=== PATIENT | female | born 1985 | race Caucasian/White ===

== ENCOUNTER 2016-12-20 20:24 | Inpatient (IN) | payer BC, OTHER ==
[~2016-12-20] VITALS: Ht 157.5 cm; Wt 99.8 kg
[2016-12-20] MEDS ORDERED: DULO60CA45 PO (20:51)
[2016-12-20] MEDS ORDERED: OMEP40CA37 PO (20:51)
[2016-12-20] MEDS ORDERED: VISTARIL (20:51)
[2016-12-20] MEDS ORDERED: LAMO100T2 PO (20:51)
[2016-12-20] MEDS ORDERED: METF500T4 PO (20:51)
[2016-12-20] MEDS ORDERED: PROP60CA2 PO (20:51)
[2016-12-20] MEDS ORDERED: PRAV40TA3 PO (20:51)
[2016-12-20] MEDS ORDERED: BUPR150T5 PO (20:51)
[2016-12-20] MEDS ORDERED: GABA-534 PO (20:51)
[2016-12-20] MEDS ORDERED: GABA600T2 PO (20:51)
[2016-12-20] MEDS ORDERED: TRAZ-144 PO (20:51)
[2016-12-20 21:02] LABS: *URINE HCG, QUAL NEGATIVE (NEGATIVE)
[2016-12-20 21:10] LABS: *AMPHETAMINE, URINE NEGATIVE (NEGATIVE); *BARBITURATE, URINE NEGATIVE (NEGATIVE); *CANNABINOID, URINE NEGATIVE (NEGATIVE); *COCCAINE, URINE NEGATIVE (NEGATIVE); *OPIATE, URINE NEGATIVE (NEGATIVE); *PHENCYCLIDINE SCREEN,URINE NEGATIVE (NEGATIVE)
[2016-12-20 21:22] LABS: BASOPHILS # (AUTO) 0.1 K/uL (0.0-8.0); BASOPHILS % (AUTO) 0.6 % (0.0-2.0); EOSINOPHILS # (AUTO) 0.2 K/uL (0.0-0.7); EOSINOPHILS % (AUTO) 2.4 % (0.0-7.0); HEMATOCRIT 41.3 % (37-47); HEMOGLOBIN 13.6 G/DL (12.0-16.0); LYMPHOCYTES # (AUTO) 3.4 K/UL (0.8-4.8); LYMPHOCYTES % (AUTO) 37.1 % (20.5-51.5); MEAN CORPUSCULAR HEMOGLOBIN 27.4 UUG (27.0-31.0); MEAN CORPUSCULAR HGB CONC 33 g/dL (32.0-37.0); MEAN CORPUSCULAR VOLUME 83.4 FL (81.0-99.0); MONOCYTES # (AUTO) 0.5 K/UL (0.1-1.30); MONOCYTES % (AUTO) 5.8 % (0.0-11.0); NEUTROPHILS # (AUTO) 5.1 K/UL (1.8-8.9); NEUTROPHILS % (AUTO) 54.1 % (38.5-71.5); PLATELET COUNT (AUTO) 510 K/UL (150-450); RED BLOOD CELL COUNT(AUTO) 4.95 MIL/UL (4.2-5.4); WHITE BLOOD COUNT (AUTO) 9.3 K/UL (4.0-11.2)
[2016-12-20 21:30] LABS: CARBON DIOXIDE 27 mmol/L (21-32); CHLORIDE 103 mmol/L (98-107); CREATININE 0.8 mg/dL (0.6-1.3); GLUCOSE 130 mg/dL (74-106); POTASSIUM 4.4 mmol/L (3.5-5.1); UREA NITROGEN, BLOOD 9 mg/dL (7-18)
--- NOTE | 2016-12-20 21:30 | NUR ---
Art is for psych eval.
[2016-12-20 21:35] LABS: ALANINE AMINOTRANSFERASE 38 U/L (14-59); ALKALINE PHOSPHATASE 44 U/L (50-136); ASPARTATE AMINOTRANSFERASE 28 U/L (15-37); BILIRUBIN,DIRECT < 0.1 mg/dL (0.0-0.2); BILIRUBIN,TOTAL 0.2 mg/dL (0.2-1.0); TOTAL PROTEIN, SERUM 7.9 g/dL (6.4-8.2)
[2016-12-20 21:37] LABS: ACETAMINOPHEN < 2.0 ug/mL (10-30)
[2016-12-20 21:43] LABS: THYROID STIMULATING HORMONE 4.507 mIU/mL (0.358-3.740)
[2016-12-20 21:56] LABS: ETHANOL < 3 MG/DL (0-0)
--- NOTE | 2016-12-20 22:25 | NUR ---
Per Dr. Arellano pt may be d/c to [facility], intake called.
--- NOTE | 2016-12-20 22:32 | NUR ---
SBAR report given to Brown on [facility] floor, pt d/c to [facility] intake. NAD noted.
[2016-12-20 23:25] VITALS: BP 143/90
--- NOTE | 2016-12-20 23:25 | NUR ---
INTAKE ASSESSMENT VS BP- 143/90 T- 97.8 P-109 R- 18 PA- SpO2 AT RA -98% IN RA. DENIES ANY PAIN AT THIS TIME. PATIENT AMBULATORY. PATIENT ANSWERS QUESTIONS APPROPRIATELY. PATIENT APPEARS TO BE NOT INTOXICATED. PATIENT DOES NOT HAVE ANY ALLERGIES. NO SEIZURE HISTORY. PATIENT WAS IN ER FOR PSYCHIATRIC CLEARANCE FOR ADMISSION TO THE UNIT. PATIENT STATES SHE WAS DEPRESSED AND HAD SUICIDE IDEATION. PSYCH EVALUATION DONE AND PATIENT WAS CLEARED AND DR. RAMIREZ NOTIFIED AND AWARE. WILL CONTINUE ADMISSION ON 3RD FLOOR.
--- NOTE | 2016-12-20 23:54 | NUR ---
ADMISSION NOTE PATIENT IS A 31 YEAR OLD FEMALE WHO PRESENTS TO [facility] FOR OPIATE/BENZO DEPENDENCE. HEIGHT IS 5'2 AND WEIGHT IS 220 LBS. LUNGS CLEAR . ABDOMEN SOFT AND NON-DISTENDED. BOWEL SOUNDS ACTIVE ON ALL QUADRANT. LAST BOWEL MOVEMENT TODAY AT 4 PM AND NO DIFFICULTY WHEN URINATING. BODY CHECK DONE. SKIN CLEAR AND INTACT. PATIENT REPORTS PM OF ANXIETY, DEPRESSION, BIPOLAR (2013), TONSILLECTOMY (SEP 2008), CHOLECYSTECTOMY (MAY 2008) AND POLYCYSTIC OVARY SYNDROME. PATIENT'S PCP IS DR. PARKER RAMIREZ. 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 PATIENT'S SUBSTANCE HISTORY ARE : 1.XANAX (PO)- STARTED 18 YEARS OLD. TAKES 3-4 MG DAILY FOR 10 DAYS . LAST USE WAS 2 MG ON 12/20/16 2.VALIUM (PO)-STARTED 30 YEARS OLD. TAKES 30 MG DAILY FOR 4 DAYS . LAST USE WAS 30 MG ON 12/19/16 3.NORCO (PO)-STARTED 20 YEARS OLD. 20 MG DAILY FOR 3 DAYS . LAST USE WAS 20 MG ON 12/09/16 4.BUPRENORPHINE (RECTALLY) -STARTED 24 YEARS OLD. 4 MG DAILY FOR 4 DAYS. LAST USE WAS 4 MG ON 12/12/16 5.BUTORPHANOL (RECTALLY )- STARTED A YEAR AGO. 3 MG DAILY FOR 4 DAYS. LAST USE WAS 5 MG ON 12/19/16 6.AMBIEN (PO)-STARTED A YEAR AGO. 20 MG DAILY FOR 10 DAYS. LAST USE WAS 12/20/16 7.KETAMINE (RECTALLY)-STARTED USING 5 DAYS AGO.USED 10 ML IN 3 DAYS . LAST USE WAS 12/17/16 TREATMENT HISTORY 1.[facility]- Nov- 6 DAYS 2.[facility]-NOV 2015 PATIENT STATES SHE'S FEELING ANXIOUS AT THIS TIME. SWEATING, TREMULOUS , NAUSEATED AND BACK PAIN /. COWS 12 AND CIWA 8. DENIES S/I AND H/I. PATIENT SMOKED OCCASIONALLY. PATIENT WAS PLACED ON FALL PRECAUTION. PATIENT ORIENTED TO SURROUNDINGS AND HOW TO USE CALL LIGHT. SAFETY MEASURES IN PLACE. CALL LIGHT IN REACH. WILL CONTINUE TO MONITOR. Addendum: 12/21/16 at 0708 by PAT BACON LVN PATIENT BROUGHT HOME MEDS - RECONCILED
[2016-12-21] MEDS ORDERED: DICYCLOMINE HCL 20 MG TABLET PO PRN (00:45)
[2016-12-21] MEDS ORDERED: diphenhydrAMINE 50 MG CAPSULE PO PRN (00:45)
[2016-12-21] MEDS ORDERED: LOPERAMIDE HCL 2 MG CAPSULE PO PRN ×2 (00:45)
[2016-12-21] MEDS ORDERED: MAGNESIUM HYDROXIDE 30 ML LIQUID UDC PO PRN (00:45)
[2016-12-21] MEDS ORDERED: LORAZEPAM 2 MG/1 ML VIAL IM PRN (00:45)
[2016-12-21] MEDS ORDERED: ONDANSETRON HCL 4 MG TABLET PO PRN (00:45)
[2016-12-21] MEDS ORDERED: LORAZEPAM 1 MG TABLET PO PRN ×2 (00:45)
[2016-12-21] MEDS ORDERED: BUPRENORPHINE HCL 2 MG TAB.SUBL SL PRN (00:45)
[2016-12-21] MEDS ORDERED: MIRALAX 17 GM POWD.PACK PO PRN (00:45)
[2016-12-21] MEDS: ONDANSETRON ODT 4 MG TAB.RAPDIS SL PRN ×3 (00:56→21:16)
[2016-12-21] MEDS: METHOCARBAMOL 750 MG TABLET PO PRN (00:56)
--- NOTE | 2016-12-21 00:56 | NUR ---
PRN ATIVAN, SUBUTEX, ZOFRAN AND ROBAXIN ADMINISTRATION PATIENT REPORTS ANXIETY, NOTED RESTLESS, SWEATING, TREMULOUS, NAUSEATED BUT NO EMESIS AND BACK PAIN 08/02. COWS 12 AND CIWA 8. WILL MONITOR FOR EFFECTIVENESS
[2016-12-21] MEDS ORDERED: BUPRENORPHINE HCL 2 MG TAB.SUBL SL ONE (01:03)
[2016-12-21] MEDS ORDERED: ONDANSETRON ODT 4 MG TAB.RAPDIS ONE (01:04)
[2016-12-21] MEDS ORDERED: LORAZEPAM 1 MG TABLET ONE (01:04)
[2016-12-21] MEDS ORDERED: METHOCARBAMOL 750 MG TABLET ONE (01:10)
--- NOTE | 2016-12-21 01:26 | NUR ---
PRN SUBUTEX RE-ASSESSMENT PATIENT ASLEEP AT THIS TIME. COWS DEFERRED. RESPIRATION EVEN AND UNLABORED. SAFETY MEASURES IN PLACE. CALL LIGHT IN REACH. WILL CONTINUE TO MONITOR.
--- NOTE | 2016-12-21 01:56 | NUR ---
RAUL SUBUTEX, ATIVAN, MOTRIN AND ROBAXIN RE-ASSESSMENT PATIENT ASLEEP AT THIS TIME. NO FACIAL GRIMACING, SLEEPING COMFORTABLY. RESPIRATION EVEN AND UNLABORED CIWA AND COWS UNABLE TO ASSESS . COWS/CIWA DEFERRED. Addendum: 12/21/16 at 0726 by PAT BACON LVN ERROR: SUBUTEX RE-ASSESSED IN 30 MINUTES
[2016-12-21] MEDS ORDERED: TETR-62 OP (03:43)
[2016-12-21] MEDS ORDERED: CYCL5TAB PO (03:43)
[2016-12-21] MEDS ORDERED: TRET20CR34 TP (03:43)
[2016-12-21] MEDS ORDERED: CLIN60LO2 TP (03:43)
[2016-12-21 04:00] VITALS: BP 114/64
[2016-12-21] MEDS: HYDROXYZINE PAMOATE 25 MG CAPSULE PO PRN ×2 (04:05→07:48)
--- NOTE | 2016-12-21 04:05 | NUR ---
PRN BENADRYL AND VISTARIL ADMINISTRATION PATIENT C/O ANXIETY AND UNABLE TO GO BACK TO SLEEP. PRN BENADRYL AND VISTARIL GIVEN. WILL MONITOR FOR EFFECTIVENESS
[2016-12-21] MEDS ORDERED: diphenhydrAMINE 50 MG CAPSULE ONE (04:10)
[2016-12-21] MEDS ORDERED: HYDROXYZINE PAMOATE 25 MG CAPSULE ONE (04:10)
--- NOTE | 2016-12-21 05:05 | NUR ---
PRN SARAVANANADRYL AND VISTARIL RE-ASSESSMENT PATIENT ASLEEP AT THIS TIME. RESPIRATION EVEN AND UNLABORED. SAFETY MEASURES IN PLACE. CALL LIGHT IN REACH. WILL CONTINUE TO MONITOR.
--- NOTE | 2016-12-21 07:12 | NUR ---
END OF SHIFT NOTE PATIENT IS 31 YEAR OLD FEMALE ADMITTED ON 2323 ON 12/20/16FOR BENZO/OPIATE DEPENDENCE. PATIENT WAS GIVEN PRN ATIVAN, SUBUTEX, ROBAXIN AND ZOFRAN. AT 0405, PATIENT WAS GIVEN PRN BENADRYL AND VISTARIL WAS GIVEN. PATIENT SLEPT 4 HOURS. FLUID INTAKE OF 960 ML. VOIDED X 2. NO BM. ON FALL PRECAUTION. SAFETY MEASURES IN PLACE. CALL LIGHT IN REACH. WILL CONTINUE TO MONITOR. LAST COWS 5 AND CIWA 2. DENIES SI/HI DURING SHIFT. PATIENT COMPLIANT WITH MEDICATION AND TREATMENT PLAN.
--- NOTE | 2016-12-21 07:45 | NUR ---
START OF SHIFT Rcvd endorsement from ongoing nurse, client is in room, she is a/o x 4, she presents with depressed mood, flat affect. She reports restless legs, body aches, abdominal cramps, nausea, and chills. Encouraged client to attend group therapy for skills to maintain sober. Encouraged client to increase PO fluid as tolerated to facilitate detox. Client is a 31 y/o female, admitted to [facility] for withdrawal from alprazolam, diazepam, and heroin. Lorazepam 1 mg PO q2h PRN CIWA 5-15, Lorazepam 2 mg PO q2h PRN CIWA 16+ and notify MD, Subutex 4mgSL Q4H PRN for COWS =>12. Last CIWA 2/COWS 4 @ 0400. PRN Ativan 1mg PO for CIWA 8, Subutex 4mg SL for COWS 12, Vistaril 25mg PO for anxiety, Benadryl 50mg PO for inability to sleep, she slept 4 hrs. She denies any of withdrawal-induced seizures, Client reports of NKA, he is full code, Regular diet. Side rails x 2 up/padded for seizure precautions. Call light within reach.
--- NOTE | 2016-12-21 07:48 | NUR ---
PRN Zofran 4mg SL, Bentyl 20mg PO, Vistaril 25mg PO administered for mild nausea w/no vomiting, abdominal spasms, and anxiety.
[2016-12-21 08:30] VITALS: BP 134/76
--- NOTE | 2016-12-21 08:48 | NUR ---
Reassessment PRN Zofran 4mg SL, Bentyl 20mg PO, Vistaril 25mg PO client verbalized relief from nausea, and abdominal spasms, she appears less anxious, she is eating breakfast and watching TV. Call light with reach.
[2016-12-21 09:01] LABS: BASOPHILS # (AUTO) 0.1 K/uL (0.0-8.0); BASOPHILS % (AUTO) 0.8 % (0.0-2.0); EOSINOPHILS # (AUTO) 0.2 K/uL (0.0-0.7); EOSINOPHILS % (AUTO) 2.5 % (0.0-7.0); HEMATOCRIT 39.2 % (37-47); HEMOGLOBIN 12.7 G/DL (12.0-16.0); LYMPHOCYTES # (AUTO) 2.6 K/UL (0.8-4.8); LYMPHOCYTES % (AUTO) 39.4 % (20.5-51.5); MEAN CORPUSCULAR HEMOGLOBIN 27.1 UUG (27.0-31.0); MEAN CORPUSCULAR HGB CONC 32 g/dL (32.0-37.0); MEAN CORPUSCULAR VOLUME 83.4 FL (81.0-99.0); MONOCYTES # (AUTO) 0.4 K/UL (0.1-1.30); MONOCYTES % (AUTO) 6.7 % (0.0-11.0); NEUTROPHILS # (AUTO) 3.3 K/UL (1.8-8.9); NEUTROPHILS % (AUTO) 50.6 % (38.5-71.5); PLATELET COUNT (AUTO) 458 K/UL (150-450); RED BLOOD CELL COUNT(AUTO) 4.69 MIL/UL (4.2-5.4); WHITE BLOOD COUNT (AUTO) 6.6 K/UL (4.0-11.2)
[2016-12-21 09:14] LABS: ALANINE AMINOTRANSFERASE 157 U/L (14-59); ALKALINE PHOSPHATASE 49 U/L (50-136); AMYLASE 39 U/L (25-115); ASPARTATE AMINOTRANSFERASE 402 U/L (15-37); BILIRUBIN,TOTAL 0.3 mg/dL (0.2-1.0); CARBON DIOXIDE 27 mmol/L (21-32); CHLORIDE 101 mmol/L (98-107); CREATININE 0.8 mg/dL (0.6-1.3); GLUCOSE 120 mg/dL (74-106); LIPASE 235 U/L (73-393); MAGNESIUM 1.5 mg/dL (1.8-2.4); POTASSIUM 3.8 mmol/L (3.5-5.1); TOTAL PROTEIN, SERUM 7.5 g/dL (6.4-8.2); UREA NITROGEN, BLOOD 9 mg/dL (7-18)
[2016-12-21 09:15] LABS: ETHANOL < 3 MG/DL (0-0)
[2016-12-21 09:21] LABS: THYROID STIMULATING HORMONE 4.071 mIU/mL (0.358-3.740)
[2016-12-21] MEDS: FOLIC ACID 1 MG TABLET PO SCH (09:32)
[2016-12-21] MEDS: MULTIVITAMINS,THERAPEUTIC TABLET PO SCH (09:32)
--- NOTE | 2016-12-21 11:00 | NUR ---
MD Notification Dr. Win made aware of abnormal lab values, NNO at this time. Client is asymptomatic, will continue to monitor.
[2016-12-21] MEDS: LORAZEPAM 1 MG TABLET PO SCH ×4 (11:43→21:09)
[2016-12-21] MEDS ORDERED: Medication Not On Formulary EA (Omeprazole 1 CAP) PO SCH (12:00)
[2016-12-21 12:55] VITALS: BP 124/86
[2016-12-21] MEDS: PROPRANOLOL LA 60 MG CAP.SA.24H PO SCH (13:24)
[2016-12-21] MEDS: BUPRENORPHINE HCL 2 MG TAB.SUBL SL SCH ×2 (13:24→21:17)
[2016-12-21] MEDS: PANTOPRAZOLE SODIUM 40 MG TABLET.DR PO SCH (13:24)
[2016-12-21] MEDS: PATIENT MAY USE OWN MED- MD OK TOP SCH (13:25)
[2016-12-21] MEDS ORDERED: MAGNESIUM OXIDE 400 MG TABLET PO ONE (14:45)
[2016-12-21] MEDS: GABAPENTIN 300 MG CAPSULE PO SCH ×2 (14:57→21:12)
--- NOTE | 2016-12-21 14:57 | NUR ---
Mag 1.5 replaced with Mag Ox 800mg PO, client tolerated well.
[2016-12-21 16:58] VITALS: BP 132/75
[2016-12-21] MEDS ORDERED: METFORMIN HCL 500 MG TABLET PO SCH (17:00)
[2016-12-21] MEDS: METFORMIN HCL 500 MG TABLET PO SCH (17:33)
[2016-12-21] MEDS: ACETAMINOPHEN 325 MG TABLET PO PRN (17:37)
--- NOTE | 2016-12-21 17:37 | NUR ---
PRN Tylenol 650mg PO administered for MAYER 07/02. Encourage client to increased PO fluid as tolerated. call light within reach.
--- NOTE | 2016-12-21 19:33 | NUR ---
START OF SHIFT Endorsed client to incoming nurse, client is a 31 y/o female, she is a/o x 4, admitted to [facility] for withdrawal from alprazolam, diazepam, and heroin. She is on 5 day Ativan, 3 day Subutex taper (day 1), tolerating well. Last CIWA 8/ COWS 8 @ 1600. PRN Zofran 4mf SL for nausea, Bentyl 20mg for abdominal spasm, Vistaril 25mg for anxiety, PRN Tylenol 650mg PO for MAYER, noted effective. She continue to present with anxious mood, flat affect, chills, and fatigue. Encouragement needed to attend to group therapy. Adequate PO fluid intake 1800mL, void x 2. She denies hx of withdrawal-induced seizures, Client report allergy to bupropion, carbamazepine, she is full code, Regular diet. Side rails x 2 up/padded for seizure precautions. Call light within reach.
[2016-12-21 20:00] VITALS: BP 148/95
--- NOTE | 2016-12-21 20:00 | NUR ---
START OF SHIFT NOTE D RECEIVED REPORT FROM DAY SHIFT NURSE. PATIENT IS A 31 YEAR OLD FEMALE ADMITTED FOR BENZO/OPIATE DEPENDENCE. PATIENT WAS PLACED ON 5 DAY ATIVAN AND 3 DAY SUBUTEX TAPER, STARTED TODAY, TOLERATED WELL, NO ADVERSE REACTION. NO SEIZURE HISTORY. SKIN INTACT. PATIENTS MAGNESIUM LEVEL WAS 1.5-REPLACED IN AM. AST 402, ALT 157 AND TSH 4.071 ELEVATED-LAB WORK ORDERED FOR TOMORROW. PATIENT WAS GIVEN PRN ZOFRAN, BENTYL, VISTARIL AND TYLENOL. LAST COWS 8 AND CIWA 8. RECEIVED PATIENT IN HER ROOM, ALERT AND ORIENTED X 4. RESPIRATION EVEN AND UNLABORED. PATIENT REPORTS NAUSEA BUT NO EMESIS, ANXIETY, SWEATING, ABDOMINAL SPASMS, NOTE WITH TREMORS, DENIES ANY PAIN AT THIS TIME , GOOD APPETITE. PATIENT DID NOT ATTEND GROUPS TODAY AND WILL GO TOMORROW. ON FALL/SEIZURE PRECAUTION. SAFETY MEASURES IN PLACE. CALL LIGHT IN REACH. WILL CONTINUE TO MONITOR.
[2016-12-21] MEDS ORDERED: PATIENT MAY USE OWN MED- MD OK TOP SCH (21:00)
[2016-12-21] MEDS: DULOXETINE 60 MG CAPSULE.DR PO SCH (21:10)
[2016-12-21] MEDS: TRAZODONE 50 MG TABLET PO SCH (21:11)
[2016-12-21] MEDS: LAMOTRIGINE 100 MG TABLET PO SCH (21:11)
[2016-12-21] MEDS: DICYCLOMINE HCL 10 MG CAPSULE PO PRN (21:16)
--- NOTE | 2016-12-21 21:16 | NUR ---
PRN BENTYL AND ZOFRAN ADMINISTRATION PATIENT C/O ABDOMINAL SPASMS AND NAUSEA BUT NO EMESIS. WILL MONITOR FOR EFFECTIVENESS
--- NOTE | 2016-12-21 21:36 | NUR ---
PRN ZOFRAN RE-ASSESSMENT PATIENT STATES ZOFRAN IS HELPFUL AND EFFECTIVE. NAUSEA CEASED. WILL CONTINUE TO MONITOR
--- NOTE | 2016-12-21 22:16 | NUR ---
BENTYL RE-ASSESSMENT PATIENT STATES BENTYL IS HELPFUL, SHE FEELS LESS SPASM ON HER ABDOMEN. WILL CONTINUE TO MONITOR.
[2016-12-22] VITALS (7 sets, daily range): BP systolic 117–146; BP diastolic 59–95
--- NOTE | 2016-12-22 | NUR ---
COWS AND CIWA DEFERRED PATIENT SLEEPING. COWS AND CIWA DEFERRED. RESPIRATION EVEN AND UNLABORED. SAFETY MEASURES IN PLACE. CALL LIGHT IN REACH. WILL CONTINUE TO MONITOR
--- NOTE | 2016-12-22 04:00 | NUR ---
COWS AND CIWA DEFERRED PATIENT SLEEPING. COWS AND CIWA DEFERRED. RESPIRATION EVEN AND UNLABORED. SAFETY MEASURES IN PLACE. CALL LIGHT IN REACH. WILL CONTINUE TO MONITOR
[2016-12-22] MEDS: METHOCARBAMOL 750 MG TABLET PO PRN ×3 (04:20→21:22)
--- NOTE | 2016-12-22 04:20 | NUR ---
PRN ZOFRAN AND ROBAXIN ADMINISTRATION PATIENT STATES SHE WOKE UP NAUSEOUS BUT NO EMESIS AND PAIN ALL OVER HER BODY 07/02. PRN ZOFRAN AND ROBAXIN GIVEN. WILL MONITOR FOR EFFECTIVENESS
[2016-12-22] MEDS: ONDANSETRON ODT 4 MG TAB.RAPDIS SL PRN ×3 (04:21→21:36)
--- NOTE | 2016-12-22 04:50 | NUR ---
PRN ZOFRAN RE-ASSESSMENT ZOFRAN HELPFUL AND EFFECTIVE. NAUSEA CEASED PER PATIENT. WILL CONTINUE TO MONITOR
--- NOTE | 2016-12-22 05:20 | NUR ---
RAUL MONROY RE-ASSESSMENT PATIENT ASLEEP AT THIS TIME. NO FACIAL GRIMACING, SLEEPING COMFORTABLY. WILL CONTINUE TO MONITOR.
[2016-12-22] MEDS: PANTOPRAZOLE SODIUM 40 MG TABLET.DR PO SCH (06:51)
--- NOTE | 2016-12-22 07:16 | NUR ---
END OF SHIFT NOTE PATIENT IS A 31 YEAR OLD FEMALE ADMITTED FOR BENZO/OPIATE DEPENDENCE. PATIENT IS ON ATIVAN AND SUBUTEX TAPER, TOLERATED WELL, NO ADVERSE REACTION. NO SEIZURE HISTORY. SKIN INTACT. PATIENTS MAGNESIUM LEVEL WAS 1.5-REPLACED IN AM. AST 402, ALT 157 AND TSH 4.071 ELEVATED-LAB WORK ORDERED FOR TODAY. PATIENT WAS GIVEN PRN ZOFRAN X 2, BENTYL AND ROBAXIN . PATIENT COMPLIANT WITH MEDICATION . PATIENT DID NOT ATTEND GROUPS AND WILL GO TODAY. ON FALL/SEIZURE PRECAUTION. SAFETY MEASURES IN PLACE. CALL LIGHT IN REACH. WILL CONTINUE TO MONITOR. SLEPT 6 HOURS. FLUID INTAKE 1,250 ML. VOIDED X 2 . NO BM. LAST COWS 9 AND CIWA 7.
[2016-12-22 07:23] LABS: BILIRUBIN,DIRECT 0.3 mg/dL (0.0-0.2); BILIRUBIN,TOTAL 0.7 mg/dL (0.2-1.0); CREATININE 0.8 mg/dL (0.6-1.3); MAGNESIUM 1.8 mg/dL (1.8-2.4); PHOSPHOROUS 4.7 mg/dL (2.5-4.9); POTASSIUM 4.7 mmol/L (3.5-5.1); TOTAL PROTEIN, SERUM 7.1 g/dL (6.4-8.2)
--- NOTE | 2016-12-22 08:00 | NUR ---
START OF SHIFT 31 year old female admitted for medically supervised detox from Xanax, valium, norco, subutex, butorphanol, ambien, ketamine. NKA, Full code, regular diet. History of cholecystectomy, anxiety, depression, bipolar, tonsillectomy. On fall and seizure precautions. Received report from night RN. Pt received Zofran, Bently for stomach cramps and nausea. Pt received Robaxin for generalized pain. Last COWS 9 and CIWA 7. 0800 nursing rounds, pt asleep but easily awakened to verbal. Bed in low position and brendon, side rails up x 2, call sauceda within reach. Will continue to monitor.
[2016-12-22] MEDS: METFORMIN HCL 500 MG TABLET PO SCH (08:04)
[2016-12-22] MEDS: BUPRENORPHINE HCL 2 MG TAB.SUBL SL SCH ×3 (08:05→21:23)
[2016-12-22] MEDS: LORAZEPAM 1 MG TABLET PO SCH ×3 (08:05→21:21)
[2016-12-22] MEDS: FOLIC ACID 1 MG TABLET PO SCH (08:05)
[2016-12-22] MEDS: GABAPENTIN 300 MG CAPSULE PO SCH ×3 (08:05→21:21)
[2016-12-22] MEDS: MULTIVITAMINS,THERAPEUTIC TABLET PO SCH (08:06)
[2016-12-22] MEDS: PROPRANOLOL LA 60 MG CAP.SA.24H PO SCH (08:06)
[2016-12-22] MEDS: buPROPion SR 150 MG TABLET.SA PO SCH (08:06)
[2016-12-22] MEDS ORDERED: TUBERCULIN,PURIF.PROT.DERIV. 5 TU/0.1 ML TEST ID ONE (09:00)
[2016-12-22] MEDS: PATIENT MAY USE OWN MED- MD OK TOP SCH (09:57)
[2016-12-22 10:07] LABS: HEPATITIS B SURFACE AG Negative (Negative)
[2016-12-22] MEDS: ACETAMINOPHEN 325 MG TABLET PO PRN (10:07)
--- NOTE | 2016-12-22 10:07 | NUR ---
PRN MEDICATION ADMINISTRATION Pt reporting generalized body aches. Given Tylenol PRN. Will reassess.
--- NOTE | 2016-12-22 11:07 | NUR ---
PRN MEDICATION ADMINISTRATION Pt received tylenol for generalized body aches at 1007. RN to reassess at 1107, Pt asleep.
[2016-12-22] MEDS: CLONIDINE HCL 0.1 MG TABLET PO PRN (13:15)
--- NOTE | 2016-12-22 13:16 | NUR ---
PRN MEDICATION ADMINISTRATION Pt reporting anxiety, nausea, muscle pain. Given PRN clonidine, zofran SL and Robaxin. Will reassess.
[2016-12-22] MEDS: DICYCLOMINE HCL 10 MG CAPSULE PO PRN ×2 (13:27→21:36)
--- NOTE | 2016-12-22 13:27 | NUR ---
PRN MEDICATION ADMINISTRATION Pt reporting stomach cramps. Given Bentyl PRN. Will reassess.
--- NOTE | 2016-12-22 14:16 | NUR ---
PRN MEDICATION REASSESSMENT Pt reports decrease in nausea after receiving PRN Zofran 30 minutes prior.
--- NOTE | 2016-12-22 14:16 | NUR ---
PRN MEDICATION REASSESSMENT Pt reports decrease in anxiety after administration of Clonidine PRN at 1315 and decrease in muscle aches after 1315 dose of PRN Robaxin.
--- NOTE | 2016-12-22 14:27 | NUR ---
PRN MEDICATION REASSESSMENT Pt reports decrease in stomach cramps after receiving Bentyl PRN at 1327.
--- NOTE | 2016-12-22 14:49 | NUR ---
ATIVAN AND SUBUTEX HELD 1500 dose of ativan and subutex held due to sedation. Pt sleeping when not stimulated, has difficulty keeping eyes open with conversation. Dr. Reece notified.
--- NOTE | 2016-12-22 18:56 | NUR ---
END OF SHIFT NOTE 31 year old female admitted for medically supervised detox from Xanax, valium, norco, subutex, butorphanol, ambien, ketamine. NKA, Full code, regular diet. History of cholecystectomy, anxiety, depression, bipolar, tonsillectomy. On fall and seizure precautions. 0800 COWS 5 and CIWA 12. Pt received am scheduled dose of ativan. At 1007, Pt reporting generalized body aches. Given Tylenol PRN. At 1107 for reassessment, pt asleep. 1302, COWS 3 and CIWA 4. 1316, Pt reporting anxiety, nausea, muscle pain. Given PRN clonidine, zofran SL and Robaxin. 1327, Pt reporting stomach cramps. Given Bentyl PRN. 1416, Pt reports decrease in nausea after receiving PRN Zofran 30 minutes prior. 1416, Pt reports decrease in anxiety and muscle aches after Clonidine PRN and PRN Robaxin. 1427, Pt reports decrease in stomach cramps after receiving Bentyl PRN. 1449, Ativan and Subutex held due to sedation. Pt sleeping when not stimulated, has difficulty keeping eyes open with conversation. Dr. Reece notified. 1700, COWS 5 and CIWA 4. 1830, pt stating she has slight nausea, but Zofran SL PRN cannot be given until 1915. Pt notified. Report given to night RN. Bed in low position and locked, side rails up x 2 and padded. Call light within reach.
--- NOTE | 2016-12-22 19:30 | NUR ---
Start of Shift Notes Received 31 year old female admitted for medically supervised detox from Xanax, valium, norco, subutex, butorphanol, ambien, ketamine. NKA, Full code, and on regular diet. On fall and seizure precautions. During the rounds at 1930, px reported anxiety on moderate to severe side. Generalized body aches 7/10. Abdominal cramps are present. Tremors are very mild. Bed in low position and locked, side rails up x 2, call sauceda within reach. We'll continue to monitor.
[2016-12-22] MEDS: DULOXETINE 60 MG CAPSULE.DR PO SCH (21:22)
[2016-12-22] MEDS: TRAZODONE 50 MG TABLET PO SCH (21:22)
[2016-12-22] MEDS: LAMOTRIGINE 100 MG TABLET PO SCH (21:22)
--- NOTE | 2016-12-22 21:22 | NUR ---
PRN Robaxin Px complained of generalized body aches concentrated on low back 09/01. Robaxin 750 mg/tab, 1 tab given PO as PRN med. We'll continue to monitor.
--- NOTE | 2016-12-22 21:36 | NUR ---
PRN Zofran and Bentyl Px complained of nausea and stomach cramps. Zofran 4 mg/tab, 1 tab given SL and Bentyl 10 mg/tab, 2 tabs given 2 tabs PO as PRN meds. We'll continue to monitor.
--- NOTE | 2016-12-22 22:22 | NUR ---
Reassessment of pain Px verbalized that the pain improved from 7/10 to 4/10 an hour after administration of Robaxin 750 mg 1 tab PO. We'll continue to monitor.
--- NOTE | 2016-12-22 22:36 | NUR ---
Reassessment of nausea and stomach cramps Px verbalized her nausea and stomach cramps improved after an hour of administration of Zofran 4 mg 1 tab SL and Bentyl 10 mg 2 tabs PO. We'll continue to monitor.
[2016-12-23] VITALS: BP 116/63
[2016-12-23 04:00] VITALS: BP 114/80
[2016-12-23] MEDS: IBUPROFEN 400 MG TABLET PO PRN ×2 (04:39→17:11)
[2016-12-23] MEDS: CLONIDINE HCL 0.1 MG TABLET PO PRN (04:40)
--- NOTE | 2016-12-23 04:40 | NUR ---
PRN Meds Px reported that her anxiety is mild to moderate side and complained about her H/A, and acid reflux. Motrin 400 mg/tab, 1 tab, Clonidine 0.1 mg/tab, 1 tab, and Mylanta 30 cc given PO as PRN meds. We'll continue to monitor.
[2016-12-23] MEDS: MAG HYDROX/AL HYDROX/SIMETH 30 ML LIQUID UDC PO PRN (04:45)
[2016-12-23 07:11] LABS: BASOPHILS # (AUTO) 0.1 K/uL (0.0-8.0); BASOPHILS % (AUTO) 0.9 % (0.0-2.0); EOSINOPHILS # (AUTO) 0.2 K/uL (0.0-0.7); EOSINOPHILS % (AUTO) 2.6 % (0.0-7.0); HEMOGLOBIN 11.6 G/DL (12.0-16.0); LYMPHOCYTES # (AUTO) 2.6 K/UL (0.8-4.8); LYMPHOCYTES % (AUTO) 32.9 % (20.5-51.5); MEAN CORPUSCULAR HEMOGLOBIN 28.1 UUG (27.0-31.0); MEAN CORPUSCULAR HGB CONC 34 g/dL (32.0-37.0); MEAN CORPUSCULAR VOLUME 82.6 FL (81.0-99.0); MONOCYTES # (AUTO) 0.8 K/UL (0.1-1.30); MONOCYTES % (AUTO) 10.2 % (0.0-11.0); NEUTROPHILS # (AUTO) 4.1 K/UL (1.8-8.9); NEUTROPHILS % (AUTO) 53.4 % (38.5-71.5); PLATELET COUNT (AUTO) 407 K/UL (150-450); RED BLOOD CELL COUNT(AUTO) 4.12 MIL/UL (4.2-5.4); WHITE BLOOD COUNT (AUTO) 7.8 K/UL (4.0-11.2)
--- NOTE | 2016-12-23 07:12 | NUR ---
End of Shift Notes 31 year old female admitted for benzos and opiates dependence. Px has NKA, on Full code, and on regular diet. On fall and seizure precautions. During the shift, px reported anxiety on moderate to severe side. Tremors are very mild. Px complained of generalized body aches concentrated on low back 7/10. Robaxin 750 mg/tab, 1 tab given PO as PRN med. Pain improved to 4/10. Px complained of nausea and stomach cramps. Zofran 4 mg/tab, 1 tab given SL and Bentyl 10 mg/tab, 2 tabs given PO as PRN meds. Around 0430, Px reported that her anxiety is mild to moderate side and complained about her H/A, and acid reflux. Motrin 400 mg/tab, 1 tab, Clonidine 0.1 mg/tab, 1 tab, and Mylanta 30 cc given PO as PRN meds. Oral intake of 1,300 ml, voided 3x, No BM. Slept for 8 hrs. Bed in low position and locked, side rails up x 2, call sauceda within reach. We'll continue to monitor.
[2016-12-23 07:20] LABS: BILIRUBIN,DIRECT 0.3 mg/dL (0.0-0.2); BILIRUBIN,TOTAL 0.6 mg/dL (0.2-1.0); CREATININE 0.7 mg/dL (0.6-1.3); MAGNESIUM 1.8 mg/dL (1.8-2.4); PHOSPHOROUS 2.9 mg/dL (2.5-4.9); POTASSIUM 4.5 mmol/L (3.5-5.1); TOTAL PROTEIN, SERUM 7.3 g/dL (6.4-8.2)
[2016-12-23 08:00] VITALS: BP 100/60
--- NOTE | 2016-12-23 08:10 | NUR ---
START OF SHIFT: RECEIVED PT A/O X 4. SHE REPORTS MUSCLE ACHES, ANXIETY,CHILLS,SWEATS,ANXIETY AND RESTLESSNESS. COWS 7 CIWA 5 . MODIFIED ATIVAN /SUBUTEX TAPER IN PROGRESS. PT STATES SHE SLEPT RESTLESS AND FEELS SHE NEEDS SOMETHING STRONGER TO ALLEVIATE HER GERD. WILL SPEAK WITH MD. PRN ROBAXIN GIVEN FOR MUSCLE ACHES. ENCOURAGED INCREASED FLUIDS TO ASSIST IN FACILITATING DETOX PROCESS. WILL CONTINUE TO MONITOR AND OFFER SUPPORT.
[2016-12-23 08:42] LABS: BILIRUBIN,DIRECT 0.3 mg/dL (0.0-0.2); BILIRUBIN,TOTAL 0.6 mg/dL (0.2-1.0)
[2016-12-23] MEDS ORDERED: BUPRENORPHINE HCL 2 MG TAB.SUBL SL SCH (09:00)
--- NOTE | 2016-12-23 09:10 | NUR ---
PT STATES PRN ROBAXIN WAS EFFECTIVE.
[2016-12-23] MEDS: BUPRENORPHINE HCL 2 MG TAB.SUBL SL SCH ×2 (09:11→20:46)
[2016-12-23] MEDS: buPROPion SR 150 MG TABLET.SA PO SCH (09:13)
[2016-12-23] MEDS: FOLIC ACID 1 MG TABLET PO SCH (09:13)
[2016-12-23] MEDS: MULTIVITAMINS,THERAPEUTIC TABLET PO SCH (09:13)
[2016-12-23] MEDS: METHOCARBAMOL 750 MG TABLET PO PRN ×2 (09:14→21:04)
[2016-12-23] MEDS: LORAZEPAM 1 MG TABLET PO SCH ×4 (09:14→20:41)
[2016-12-23] MEDS: GABAPENTIN 300 MG CAPSULE PO SCH ×3 (09:14→20:39)
[2016-12-23] MEDS: PROPRANOLOL LA 60 MG CAP.SA.24H PO SCH (09:14)
[2016-12-23 12:00] VITALS: BP 101/58
[2016-12-23 16:00] VITALS: BP 101/62
--- NOTE | 2016-12-23 16:03 | NUR ---
Therapist prompted client about group times. Client stated she would start attending groups tomorrow. Client reports she has been feeling very tired today.
[2016-12-23] MEDS: FAMOTIDINE 20 MG TABLET PO SCH (17:11)
--- NOTE | 2016-12-23 18:49 | NUR ---
END OF SHIFT: PT CONTINUES ON ATIVAN /SUBUTEX TAPER. LAST CIWA 4 COWS 6. SHE HAD AN US TO ABDOMEN TODAY DUE TO ELEVATED LIVER ENZYMES. MD MADE AWARE OF RESULTS. SHE WAS COMPLIANT WITH INCREASED FLUIDS. SHE ATTENDED A GROUP. WILL PASS SHIFT REPORT TO ONCOMING NIGHT NURSE.
--- NOTE | 2016-12-23 19:15 | NUR ---
START OF SHIFT Received 31 year old female patient admitted on 12/21/16 for Xanax, Valium, [place], Buprenorphine (rectally), Butorphanol (rectally), Ambien, and Ketamine (rectally). Pt reports a PMHx of cholecystectomy, anxiety, depression, bipolar, tonsillectomy, and polycystic ovary syndrome. She reports using Xanax PO 3-4 mg daily for 10 days. Last dose was 2 mg on 12/20/16, Valium PO 30 mg daily for 4 days. Last dose was 30 mg on 12/19/16. [place] PO 20 mg daily for 3 days. Last dose was 20 mg on 12/09/16. Buprenorphine (rectally) 4 mg daily for 4 days. last dose was 4 mg on 12/12/16. Butorphanol (rectally) 3 mg daily for 4 days. Last dose was 5 mg on 12/19/16. Ambien PO 20 mg daily for 10 days. Last dose was 20 mg on 12/20/16. And ketamine (rectally) 10 mL in 3 days. Last dose was 5 days ago. Pt is on a 5 day Ativan and 5 day Subutex taper started on 12/21/16. Per endorsement, pt received PRN Robaxin. Pt is alert and oriented x4, breathing is even and unlabored. Safety measures in place. Will monitor.
[2016-12-23 20:00] VITALS: BP 106/60
[2016-12-23] MEDS: DICYCLOMINE HCL 20 MG TABLET PO SCH (20:39)
[2016-12-23] MEDS: LAMOTRIGINE 100 MG TABLET PO SCH (20:40)
[2016-12-23] MEDS: TRAZODONE 50 MG TABLET PO SCH (20:42)
[2016-12-23] MEDS: DULOXETINE 60 MG CAPSULE.DR PO SCH (20:42)
[2016-12-23] MEDS ORDERED: LORAZEPAM 1 MG TABLET PO SCH (21:00)
--- NOTE | 2016-12-23 21:04 | NUR ---
PRN ROBAXIN Pt complains of muscle spasms and body aches 08/02. PRN Robaxin administered as ordered. Safety measures in place. Will monitor effectiveness.
--- NOTE | 2016-12-23 22:04 | NUR ---
PRN REASSESSMENT PRN medication effective. Pt reports decrease in body aches 06/02. Safety measures in place. Will monitor.
[2016-12-23] MEDS: HYDROXYZINE PAMOATE 25 MG CAPSULE PO PRN (23:42)
--- NOTE | 2016-12-23 23:43 | NUR ---
PRN VISTARIL Pt complains of anxiety. Pt noted to be restless in room. PRN Vistaril administered as ordered. Will monitor effectiveness.
[2016-12-24 00:02] VITALS: BP 115/62
--- NOTE | 2016-12-24 00:43 | NUR ---
PRN REASSESSMENT PRN medication effective. Pt reports decrease in anxiety, and reports she is ready to sleep. Safety measures in place. Will monitor.
[2016-12-24 04:00] VITALS: BP 108/57
--- NOTE | 2016-12-24 04:00 | NUR ---
CIWA, COWS DEFERRED Pt is lying in bed with eyes closed noted to be asleep. Respirations 16. Safety measures in place. Will monitor.
--- NOTE | 2016-12-24 07:05 | NUR ---
Start of Shift Endorsement received from nightshift nurse. Pt is a 31 y/o female admitted for Benzo and Opiate dependence. Pt has been placed on a 5 day Ativan and 3 day Subutex taper. Pt is moderately withdrawing AEB COWS 8, CIWA 8 at midnight. Pt reports sleeping 4 hours. PT experiences sleep apnea and oxygenation drop to 90% at time. has been notified. Pt received PRN Robaxin and Vistaril. PT remains compliant with medication regimen. VS WNL. Full Code. Pt is alert and oriented x4. Call light within reach. All safety measures are in place, side rails up x2. All needs have been met at this time. Will continue to monitor.
--- NOTE | 2016-12-24 07:05 | NUR ---
END OF SHIFT Pt is a 31 year old female patient admitted on 12/21/16 for Xanax, Valium, [place], Buprenorphine (rectally), Butorphanol (rectally), Ambien, and Ketamine (rectally). She continues on a 5 day Ativan and 5 day Subutex taper started on 12/21/16 and is tolerating well. At 2104 she received PRN Robaxin, and at 2342 she received PRN Vistaril. She slept a total of 4 hrs, Intake: 3196mL, Void:x5, BM:0, COWS:8,CIWA:8. She remains alert and oriented x4, breathing is even and unlabored. Safety measures in place. Will endorse to oncoming shift.
[2016-12-24 08:02] VITALS: BP 124/84
[2016-12-24] MEDS ORDERED: BUPRENORPHINE HCL 2 MG TAB.SUBL SL SCH (09:00)
[2016-12-24] MEDS: MULTIVITAMINS,THERAPEUTIC TABLET PO SCH (09:21)
[2016-12-24] MEDS: buPROPion SR 150 MG TABLET.SA PO SCH (09:21)
[2016-12-24] MEDS: LORAZEPAM 1 MG TABLET PO SCH ×3 (09:21→22:20)
[2016-12-24] MEDS: DICYCLOMINE HCL 20 MG TABLET PO SCH ×3 (09:21→22:26)
[2016-12-24] MEDS: FOLIC ACID 1 MG TABLET PO SCH (09:21)
[2016-12-24] MEDS: FAMOTIDINE 20 MG TABLET PO SCH ×2 (09:21→22:21)
[2016-12-24] MEDS: GABAPENTIN 300 MG CAPSULE PO SCH ×3 (09:21→22:19)
[2016-12-24] MEDS: PROPRANOLOL LA 60 MG CAP.SA.24H PO SCH (09:23)
[2016-12-24] MEDS: ONDANSETRON ODT 4 MG TAB.RAPDIS SL PRN ×2 (09:28→21:46)
[2016-12-24 12:00] VITALS: BP 127/80
[2016-12-24 16:00] VITALS: BP 115/80
--- NOTE | 2016-12-24 19:09 | NUR ---
End of Shift Endorsement given to nightshift nurse. Pt is a 31 y/o female admitted for Benzo and Opiate dependence. Pt has been placed on a 5 day Ativan and 3 day Subutex taper. Pt is moderately withdrawing AEB COWS 5, CIWA 4 at 1600. Pt spent the whole day in her room sleeping reporting that she felt tired. Breathing even and unlabored. Pt received PRN Zofran for reported nausea, medication was effective. Pt remained in room and did not participate in activities and groups despite repeated encouragements. Educated pt on diet and medication regimen. Intake: 850ml, Void x2, BM x0. Pt received PRN Robaxin and Vistaril. PT remains compliant with medication regimen. VS WNL. Full Code. Pt is alert and oriented x4. Call light within reach. All safety measures are in place, side rails up x2. All needs have been met at this time. Will continue to monitor.
--- NOTE | 2016-12-24 19:15 | NUR ---
START OF SHIFT Received 31 year old female patient admitted on 12/21/16 for Xanax, Valium, [place], Buprenorphine (rectally), Butorphanol (rectally), Ambien, and Ketamine (rectally). Pt reports a PMHx of cholecystectomy, anxiety, depression, bipolar, tonsillectomy, and polycystic ovary syndrome. She reports using Xanax PO 3-4 mg daily for 10 days. Last dose was 2 mg on 12/20/16, Valium PO 30 mg daily for 4 days. Last dose was 30 mg on 12/19/16. [place] PO 20 mg daily for 3 days. Last dose was 20 mg on 12/09/16. Buprenorphine (rectally) 4 mg daily for 4 days. last dose was 4 mg on 12/12/16. Butorphanol (rectally) 3 mg daily for 4 days. Last dose was 5 mg on 12/19/16. Ambien PO 20 mg daily for 10 days. Last dose was 20 mg on 12/20/16. And ketamine (rectally) 10 mL in 3 days. Last dose was 5 days ago. Pt is on a 5 day Ativan and 3 day Subutex taper started on 12/21/16, pt completed her 3 day Subutex taper and tolerated well. Per endorsement, pt received PRN Zofran. Pt currently lying in bed with eyes closed noted to be asleep, but is responsive to nurses greeting. Safety measures in place. Will monitor.
[2016-12-24 20:00] VITALS: BP 120/60
--- NOTE | 2016-12-24 21:46 | NUR ---
PRN ZOFRAN Pt complains of nausea with no episode of vomiting. PRN Zofran administered as ordered. Will monitor effectiveness
--- NOTE | 2016-12-24 22:16 | NUR ---
PRN ZOFRAN REASSESSMENT PRN medication effective. Pt reports decrease in nausea. Will continue to monitor.
--- NOTE | 2016-12-24 22:20 | NUR ---
NURSING NOTE Pt noted to be alert and oriented x3. Pt disoriented to time. Reoriented pt to time and day, pt able to verbalize situation and stated " I know I'm here to detox." Pt is able to be reoriented easily. Charge nurse and MD made aware.
[2016-12-24] MEDS: LAMOTRIGINE 100 MG TABLET PO SCH (22:23)
[2016-12-24] MEDS: DULOXETINE 60 MG CAPSULE.DR PO SCH (22:25)
[2016-12-24] MEDS: TRAZODONE 50 MG TABLET PO SCH (22:27)
[2016-12-25] VITALS: BP 118/67
--- NOTE | 2016-12-25 | NUR ---
CIWA DEFERRED Pt lying in bed with eyes closed noted to be asleep. Safety measures in place. Will continue to monitor.
--- NOTE | 2016-12-25 04:00 | NUR ---
CIWA DEFERRED Pt lying in bed with eyes closed noted to be asleep. Safety measures in place. Will monitor.
[2016-12-25 04:08] VITALS: BP 128/75
[2016-12-25] MEDS ORDERED: ACETAMINOPHEN 325 MG TABLET PO ONE (04:15)
--- NOTE | 2016-12-25 04:15 | NUR ---
ONE TIME TYLENOL Pt noted with increased temp of 100.2. One time Tylenol administered as ordered for fever. Will monitor effectiveness.
[2016-12-25] MEDS: MAG HYDROX/AL HYDROX/SIMETH 30 ML LIQUID UDC PO PRN (04:17)
[2016-12-25] MEDS ORDERED: ACETAMINOPHEN 325 MG TABLET ONE (04:24)
--- NOTE | 2016-12-25 05:15 | NUR ---
REASSESSMENT medication effective. Pt's temp decreased to 99.9. Pt is lying in bed with eyes closed noted to be asleep. No facial grimacing noted. Safety measures in place. Will continue to monitor.
--- NOTE | 2016-12-25 07:19 | NUR ---
END OF SHIFT Pt is a 31 year old female patient admitted on 12/21/16 for Xanax, Valium, [place], Buprenorphine (rectally), Butorphanol (rectally), Ambien, and Ketamine (rectally). She continues on her 5 day Ativan taper and is tolerating well. She had an episode of confusion and was disoriented to time. Pt was easily reoriented and able to verbalize situation. At 2146 she received PRN Zofran. At 414 she received a one time order of Tylenol for increased temperature of 100.2, pt also complained of sore throat. At 416 she received PRN Maalox for complaints of heartburn. Encouraged fluids and rest. She slept a total of 10 hrs, Intake:1355mL, Void:x2, BM:x1, COWS: 4, CIWA:10 prior to medication administration. Pt is alert and oriented x3, compliant with care, safety measures in place. Endorsed to oncoming shift.
[2016-12-25 08:00] VITALS: BP 102/63
[2016-12-25] MEDS: PROPRANOLOL LA 60 MG CAP.SA.24H PO SCH (09:00)
[2016-12-25] MEDS: DICYCLOMINE HCL 20 MG TABLET PO SCH ×3 (09:01→20:53)
[2016-12-25] MEDS: FOLIC ACID 1 MG TABLET PO SCH (09:01)
[2016-12-25] MEDS: MULTIVITAMINS,THERAPEUTIC TABLET PO SCH (09:01)
[2016-12-25] MEDS: GABAPENTIN 300 MG CAPSULE PO SCH ×3 (09:01→20:53)
[2016-12-25] MEDS: buPROPion SR 150 MG TABLET.SA PO SCH (09:02)
[2016-12-25] MEDS: FAMOTIDINE 20 MG TABLET PO SCH ×2 (09:02→21:21)
[2016-12-25] MEDS: LORAZEPAM 1 MG TABLET PO SCH ×2 (09:09→20:53)
--- NOTE | 2016-12-25 09:30 | NUR ---
START OF SHIFT Received report from sampler and test preparer nurse. Patient is 31 year old female admitted for medically supervised withdrawal from opiates and benzodiazepines. Patient is full code with NKA. Patient is alert and oriented X4. On 5-Day Ativan taper. On assessment this AM: CIWA:3 and COWS: 4 Denies chest pain, vitals signs: WNL, using 5L oxygen via nasal cannula, satting between 90-97% and reports expiratory wheezing and complains of sore throat. Patient reports mild anxiety, mild tremors, fullness around her head and chills. Denies nausea, vomiting, stomach cramping, auditory and visual hallucinations and tactile disturbances. Med compliant with AM meds. Patient was encouraged to attend group meetings today. Wanted to talk to her parents, staff notified to assist patient with phone call. Will continue to monitor patient. Addendum: 12/25/16 at 1136 by MIGUEL WELLS RN PPD skin test read on LFA, negative result noted.
--- NOTE | 2016-12-25 11:30 | NUR ---
Endorsement received from previous nurse.
--- NOTE | 2016-12-25 11:30 | NUR ---
ENDORSEMENT OF PATIENT Endorsed patient to oncoming RN Ovidio.
[2016-12-25 12:00] VITALS: BP 109/67
[2016-12-25] MEDS ORDERED: ALBUTEROL SULFATE 2.5 MG/3 ML NEBU NEB PRN (13:30)
[2016-12-25 16:00] VITALS: BP 117/59
--- NOTE | 2016-12-25 16:45 | NUR ---
PRN Robaxin Administered PRN Robaxin for reported muscle pain and back pain
[2016-12-25] MEDS: METHOCARBAMOL 750 MG TABLET PO PRN (18:53)
--- NOTE | 2016-12-25 19:09 | NUR ---
End of Shift Endorsement given to nightshift nurse. Pt is a 31 y/o female admitted for Benzo and Opiate dependence. Pt has been placed on a 5 day Ativan and 3 day Subutex taper. Pt is moderately withdrawing AEB COWS 4, CIWA 4 at 1600. Pt participated in groups and activities. Pt has been placed on PRN O2 due O2 saturation below 90% while sleeping. Pt received PRN Robaxin for reported backpain and muscle aches. Intake: 2150ml, Void x3, BM x0. Pt received PRN Robaxin and Vistaril. PT remains compliant with medication regimen. VS WNL. Full Code. Pt is alert and oriented x4. Call light within reach. All safety measures are in place, side rails up x2. All needs have been met at this time. Will continue to monitor.
--- NOTE | 2016-12-25 19:30 | NUR ---
Start of Shift Notes Received 31 year old female admitted on 12/20/2016 for medically supervised detox from Xanax, valium, norco, subutex, butorphanol, ambien, ketamine. NKA, Full code, and on regular diet. On fall and seizure precautions. During the rounds at 1930, px reported anxiety on mild to moderate side. Abdominal cramps are still present. Bed in low position and locked, side rails up x 2, call sauceda within reach. We'll continue to monitor.
[2016-12-25 20:00] VITALS: BP 100/64
[2016-12-25] MEDS: TRAZODONE 50 MG TABLET PO SCH (20:54)
[2016-12-25] MEDS: DULOXETINE 60 MG CAPSULE.DR PO SCH (20:54)
[2016-12-25] MEDS: LAMOTRIGINE 100 MG TABLET PO SCH (20:54)
[2016-12-25] MEDS: OMEPRAZOLE 40 MG PO SCH (21:23)
[2016-12-26] VITALS: BP 123/70
--- NOTE | 2016-12-26 02:00 | NUR ---
O2 inh PRN O2 inhalation should be maintained on the px during sleep. O2sat dropped to 88% because the px keeps on taking off the O2 inh via NC. Reiterated the importance of the O2 inh during sleep, verbalized understanding.
[2016-12-26 04:00] VITALS: BP 101/60
--- NOTE | 2016-12-26 04:00 | NUR ---
COWS and CIWA deferred COWS and CIWA deferred due to the px is sleeping, to be assess if the px is awake per doctor's order. We'll continue to monitor.
--- NOTE | 2016-12-26 07:14 | NUR ---
End of Shift Notes 31 year old female admitted on 12/20/2016 for medically supervised detox from Xanax, valium, norco, subutex, butorphanol, ambien, ketamine. NKA, Full code, and on regular diet. On fall and seizure precautions. During the shift, px reported anxiety on mild to moderate side. Abdominal cramps are still present. O2 inhalation should be maintained on the px during sleep. O2sat dropped to 88% because the px keeps on taking off the O2 inh via NC. Reiterated the importance of the O2 inh during sleep, verbalized understanding. Oral intake of 1L, voided 2x, No BM. Slept for 5.5 hrs. Last COWS 4, CIWA 5. Bed in low position and locked, side rails up padded x 2, call sauceda within reach. We'll continue to monitor.
--- NOTE | 2016-12-26 07:15 | NUR ---
Start of Shift Report from the night nurse: pt is a s 31 y/o female here for polysubstance abuse of Xanax, Valium, [place], Subutex (Suppository), Butorphanol (Suppository) Ambien and Ketamine (Suppository); 5 day Ativan and 3 day Subutex tapers ordered. HHx: Cholecystectomy 05/2008, Anxiety, Depression, Bipolar and tonsillectomy 09/2005, detox at [facility] 11/24/2016. Pt is a full code, regular diet, NKA, fall precautions ordered. Skin is intact. V/S stable. No PRN's given last night. Last COWS 4 CIWA 5. Pt is asleep in room. Will cont. to monitor the pt.
[2016-12-26 08:00] VITALS: BP 107/61
[2016-12-26] MEDS ORDERED: LORAZEPAM 1 MG TABLET PO SCH (09:00)
[2016-12-26] MEDS: buPROPion SR 150 MG TABLET.SA PO SCH (09:44)
[2016-12-26] MEDS: METHOCARBAMOL 750 MG TABLET PO PRN ×2 (09:44→22:40)
[2016-12-26] MEDS: FAMOTIDINE 20 MG TABLET PO SCH ×2 (09:44→22:29)
[2016-12-26] MEDS: OMEPRAZOLE 40 MG PO SCH ×2 (09:44→22:35)
[2016-12-26] MEDS: MULTIVITAMINS,THERAPEUTIC TABLET PO SCH (09:44)
[2016-12-26] MEDS: FOLIC ACID 1 MG TABLET PO SCH (09:44)
[2016-12-26] MEDS: PROPRANOLOL LA 60 MG CAP.SA.24H PO SCH (09:45)
[2016-12-26] MEDS: GABAPENTIN 300 MG CAPSULE PO SCH ×3 (09:45→22:29)
[2016-12-26] MEDS: DICYCLOMINE HCL 20 MG TABLET PO SCH ×3 (09:45→22:29)
--- NOTE | 2016-12-26 10:00 | NUR ---
PRN Medication Administration Pt c/o no BM for 3 days; PRN Miralax given as ordered. Will cont. to monitor the pt.
[2016-12-26] MEDS ORDERED: NAPHAZOLINE/PHENIR OPHT DROP 15 ML BOTTLE LEFTEYE PRN (13:15)
--- NOTE | 2016-12-26 14:01 | NUR ---
Therapist prompted client to come to group today. Client agreed to attend group
[2016-12-26] MEDS ORDERED: ALBU6.7H INH (15:16)
[2016-12-26] MEDS ORDERED: METH-406 PO (15:16)
[2016-12-26] MEDS ORDERED: DIPH50CA37 PO (15:16)
[2016-12-26] MEDS ORDERED: DICY20TA28 PO (15:16)
[2016-12-26] MEDS ORDERED: GABA-534 PO ×2 (15:16)
[2016-12-26] MEDS ORDERED: HYDR-3895 PO (15:16)
[2016-12-26] MEDS ORDERED: AMLO5TAB2 PO (15:16)
[2016-12-26 16:00] VITALS: BP 121/71
--- NOTE | 2016-12-26 19:28 | NUR ---
End of Shift Report to the night nurse: pt is a s 31 y/o female here for polysubstance abuse of Xanax, Valium, [place], Subutex (Suppository), Butorphanol (Suppository) Ambien and Ketamine (Suppository); 5 day Ativan and 3 day Subutex tapers ordered. HHx: Cholecystectomy 05/2008, Anxiety, Depression, Bipolar and tonsillectomy 09/2005, detox at [facility] 11/24/2016. Pt is a full code, regular diet, NKA, fall precautions ordered. Skin is intact. V/S stable. PRN Miralax given this morning since pt states no BM for 3 days. Pt attended some group therapy and activities. New order for pt to be d/c tomorrow. Last COWS 2 CIWA 1.
[2016-12-26 20:00] VITALS: BP 115/65
--- NOTE | 2016-12-26 20:00 | NUR ---
Start of Shift Patient is a 31-year old, female, admitted for Xanax,Valium, [place], Subutex, Butorphanol, Ambien and Ketamine Dependence. Pt with NKA, is Full code, and on Regular Diet. With history of Anxiety, Depression, Bipolar Disorder, Tonsillectomy, Polycystic Ovary Syndrome and Cholecystectomy. Pt was placed on Ativan and Subutex tapers, both finished and with no adverse reactions. Pt to be discharged tomorrow to [facility] and she is aware. Pt is AAOx4, with mild anxiety noted. No SOB observed. Pt is ambulatory with steady gait and with no skin issues. Fall, universal, seizure and safety prec in place. Call light within reach. No c/o pain at this time. Latest COWS=2 , CIWA=1. Will continue to monitor.
[2016-12-26] MEDS: TRAZODONE 50 MG TABLET PO SCH (22:30)
[2016-12-26] MEDS: LAMOTRIGINE 100 MG TABLET PO SCH (22:30)
[2016-12-26] MEDS: DULOXETINE 60 MG CAPSULE.DR PO SCH (22:30)
--- NOTE | 2016-12-26 22:40 | NUR ---
RN note PRN Robaxin Pt c/o generalized muscle pain=09/01. Administered Robaxin 750 mg PO as ordered. Will reassess.
--- NOTE | 2016-12-26 23:40 | NUR ---
RN note reassess Pt asleep on bed, with no SOB nor facial grimacing noted.
[2016-12-27] VITALS: BP 112/66
--- NOTE | 2016-12-27 04:05 | NUR ---
RN note Vital Signs and COWS/CIWA assessment refusal Pt refused vital signs check and COWS/CIWA assessment despite explanation of risks and benefits. RR=16.
--- NOTE | 2016-12-27 07:14 | NUR ---
End of Shift Patient is a 31-year old, female, admitted for Xanax,Valium, [place], Subutex, Butorphanol, Ambien and Ketamine Dependence. Pt with NKA, is Full code, and on Regular Diet. With history of Anxiety, Depression, Bipolar Disorder, Tonsillectomy, Polycystic Ovary Syndrome and Cholecystectomy. Pt was placed on Ativan and Subutex tapers, both finished and with no adverse reactions. Pt to be discharged tomorrow to [facility] and she is aware. Pt is AAOx4, with mild anxiety noted. No SOB observed. Pt is ambulatory with steady gait and with no skin issues. Fall, universal, seizure and safety prec in place. Call light within reach. No c/o pain at this time. Latest COWS=1 , CIWA=0, slept for 6 hours. Endorsed to AM shift nurse for continuity of care.
--- NOTE | 2016-12-27 07:15 | NUR ---
Start of Shift Endorsement received from nightshift nurse. Pt is a 31 y/o female admitted for Benzo and Opiate Dependence. PT has been placed on a 5 day Ativan and 3 day Subutex taper. PT has completed both tapers and has been scheduled to be discharged today 11/25/16. Pt is tolerating the detox process and mildly withdrawing AEB COWS 1, CIWA 0 at 1999. Pt received PRN Robaxin for reported back pain and muscle aches. VS WNL. Full Code. Pt reports sleeping 6 hours. PT is alert and oriented x4. Pt is in STABLE condition at this time. Remains compliant with medication and diet regimen. All needs have been met, All safety measures in place per hospital policy. Bed in lowest position, side rails up x2, call-light within reach. Will continue to monitor
[2016-12-27 08:00] VITALS: BP 138/84
[2016-12-27] MEDS: FAMOTIDINE 20 MG TABLET PO SCH (08:29)
[2016-12-27] MEDS: DICYCLOMINE HCL 20 MG TABLET PO SCH (08:29)
[2016-12-27 08:30] VITALS: BP 138/85
[2016-12-27] MEDS: GABAPENTIN 300 MG CAPSULE PO SCH (08:30)
[2016-12-27] MEDS: FOLIC ACID 1 MG TABLET PO SCH (08:30)
[2016-12-27] MEDS: buPROPion SR 150 MG TABLET.SA PO SCH (08:30)
[2016-12-27] MEDS: MULTIVITAMINS,THERAPEUTIC TABLET PO SCH (08:30)
[2016-12-27] MEDS: OMEPRAZOLE 40 MG PO SCH (08:33)
[2016-12-27] MEDS ORDERED: AMLODIPINE 5 MG TABLET PO SCH (09:00)
--- NOTE | 2016-12-27 09:35 | NUR ---
Discharge note PT has been discharged from [facility]. PT is in Stable condition, VS WNL. Denies suicidal and homicidal ideations at this time. . All documentation has been completed, paperwork signed and dated. Pt left with all of her belongings, medications and prescriptions. Pt has been discharged from [facility] on 12/27/16 at 0935. has been Notified.
== END 2016-12-27 09:32 | disposition other institution (70) | DRG 895 ==
LOC: ER 20:26 → SRC 22:43
PROVIDERS: ADMIT Internal Medicine; ATTEND Internal Medicine
PROC: HZ2ZZZZ Detoxification Services for Substance Abuse Treatment (ICD-10-PCS; principal; 2016-12-20)
PROC: HZ31ZZZ Individual Counseling for Substance Abuse Treatment, Behavioral (ICD-10-PCS; 2016-12-23)
DX: F13.230 Sedative, hypnotic or anxiolytic dependence with withdrawal, uncomplicated (principal); E87.8 Other disorders of electrolyte and fluid balance, not elsewhere classified; R45.851 Suicidal ideations; G47.36 Sleep related hypoventilation in conditions classified elsewhere; E83.42 Hypomagnesemia; Z68.41 Body mass index [BMI] 40.0-44.9, adult; E87.1 Hypo-osmolality and hyponatremia; F19.20 Other psychoactive substance dependence, uncomplicated; K76.0 Fatty (change of) liver, not elsewhere classified; K70.0 Alcoholic fatty liver; I15.9 Secondary hypertension, unspecified; F17.210 Nicotine dependence, cigarettes, uncomplicated; F11.23 Opioid dependence with withdrawal; F41.9 Anxiety disorder, unspecified; Z81.8 Family history of other mental and behavioral disorders; Z83.3 Family history of diabetes mellitus; Z82.49 Family history of ischemic heart disease and other diseases of the circulatory system; Z90.49 Acquired absence of other specified parts of digestive tract; K21.9 Gastro-esophageal reflux disease without esophagitis; E28.2 Polycystic ovarian syndrome; E66.9 Obesity, unspecified; D64.9 Anemia, unspecified; F16.10 Hallucinogen abuse, uncomplicated; F15.10 Other stimulant abuse, uncomplicated; E07.81 Sick-euthyroid syndrome; Z79.899 Other long term (current) drug therapy; F32.9 Major depressive disorder, single episode, unspecified; B30.9 Viral conjunctivitis, unspecified; F41.8 Other specified anxiety disorders; R74.0 Nonspecific elevation of levels of transaminase and lactic acid dehydrogenase [LDH]; E02 Subclinical iodine-deficiency hypothyroidism; E86.9 Volume depletion, unspecified; Z79.84 Long term (current) use of oral hypoglycemic drugs; E86.1 Hypovolemia; F12.10 Cannabis abuse, uncomplicated
CPT/HCPCS: 36415; 71010; 76700; 80307; 80346; 83690; 83735; 84100; 84443; 84703; 85025; 86580; 86592; 86705; 86803; 87340; 87806; G0480; G0480-TC; Q0162; Q0163